=== PATIENT | male | born 1950 | race Caucasian/White ===

== ENCOUNTER 2019-07-23 13:48 | Inpatient (IN) | payer OTHER, MEDICAID ==
[~2019-07-23] VITALS: Ht 172.7 cm; Wt 68.0 kg
[2019-07-23 13:54] VITALS: BP_SYST 141
[2019-07-23 14:57] LABS: BASOPHILS % (AUTO) 0.5 % (0.0-2.0); EOSINOPHILS % (AUTO) 0.4 % (0.0-4.0); HEMATOCRIT 32.7 % (36-54); HEMOGLOBIN 11.4 g/dL (14.0-18.0); LYMPHOCYTES # (AUTO) 0.8 K/uL (1.0-5.5); LYMPHOCYTES % (AUTO) 9.5 % (20.5-51.5); MEAN CORPUSCULAR HEMOGLOBIN 32 pg (27-31); MEAN CORPUSCULAR HGB CONC 35 % (32-36); MEAN CORPUSCULAR VOLUME 92 fL (79.0-98.0); NEUTROPHILS # (AUTO) 6.5 K/uL (1.8-7.7); NEUTROPHILS % (AUTO) 77.6 % (40.0-70.0); PLATELET COUNT (AUTO) 525 K/uL (130-430); RED BLOOD CELL COUNT(AUTO) 3.56 MIL/uL (4.2-6.2); RED CELL DISTRIBUTION WIDTH 13.3 % (9.0-15.0); WHITE BLOOD COUNT (AUTO) 8.4 K/uL (4.8-10.8)
[2019-07-23 15:01] LABS: CALCIUM 9.5 mg/dL (8.4-11.0); CREATININE 0.78 mg/dL (0.55-1.30); POTASSIUM 4.4 mmol/L (3.5-5.1)
[2019-07-23 15:07] LABS: ALBUMIN 2.5 g/dL (3.4-4.8); INR 1.1 (0.80-1.20); PROTHROMBIN TIME 10.8 SECS (9.5-12.5); TOTAL BILIRUBIN 0.3 mg/dL (0.0-1.0)
[2019-07-23] MEDS ORDERED: MORPHINE 2 MG/ML INJ. SYRINGE IVP ONE (15:30)
[2019-07-23 15:57] LABS: BILIRUBIN,URINE NEGATIVE (NEGATIVE); CLARITY/URINE CLEAR (CLEAR); COLOR,URINE YELLOW (YELLOW); GLUCOSE,URINE NEGATIVE (NEGATIVE); KETONES,URINE NEGATIVE (NEGATIVE); LEUKOCYTE ESTERASE ,URINE NEGATIVE (NEGATIVE); NITRITE, URINE NEGATIVE (NEGATIVE); PROTEIN URINE NEGATIVE (NEGATIVE); UROBILINOGEN,URINE 0.2 (0.2-1.0)
[2019-07-23] MEDS ORDERED: LOSA50TA28 PO (16:04)
[2019-07-23] MEDS ORDERED: LINA290C PO (16:04)
[2019-07-23] MEDS ORDERED: OXYC10TA56 PO ×2 (16:04)
[2019-07-23] MEDS ORDERED: PRED1TAB PO (16:04)
[2019-07-23 16:05] LABS: BLOOD, URINE TRACE (NEGATIVE)
[2019-07-23 16:41] LABS: BACTERIA,URINE FEW /HPF (None Seen); CALCIUM OXALATE CRYSTALS,UR 0-10 /HPF (None Seen); WBC,URINE 0-3 /HPF (0-3)
[2019-07-23 16:51] VITALS: BP_SYST 120
[2019-07-23] MEDS ORDERED: ONDANSETRON HCL 4 MG/2 ML VIAL IVP PRN (17:30)
[2019-07-23] MEDS ORDERED: predniSONE 1 MG TABLET PO ONE (17:30)
[2019-07-23] MEDS ORDERED: oxyCODONE HCL 10 MG TAB.ER.12H PO PRN (17:30)
[2019-07-23] MEDS ORDERED: LACTULOSE 20 GM/30 ML UDC PO PRN (17:45)
[2019-07-23] MEDS ORDERED: FUROSEMIDE 20 MG TABLET PO ONE (17:45)
[2019-07-23] MEDS ORDERED: ACETAMINOPHEN 325 MG TABLET PO PRN (17:45)
[2019-07-23] MEDS ORDERED: ZOLPIDEM TARTRATE 5 MG TABLET PO PRN (17:45)
[2019-07-23] MEDS ORDERED: oxyCODONE HCL 5 MG TABLET PO PRN (17:55)
[2019-07-23] MEDS ORDERED: IPRATROPIUM/ALBUTEROL SULFATE 3 ML AMPUL.NEB (DUONEB) INH PRN (18:00)
[2019-07-23] MEDS: PIPERACILLIN/TAZO 3.375/DEX-IS 50 ML IV SCH ×2 (18:12→23:33)
[2019-07-23] MEDS ORDERED: COMMUNICATION ORDER XX ONE (18:15)
[2019-07-23 19:00] VITALS: BP_SYST 105
[2019-07-23 20:00] VITALS: BP_SYST 105
[2019-07-23] MEDS: MORPHINE 2 MG/ML INJ. SYRINGE IVP PRN (20:30)
[2019-07-23] MEDS: oxyCODONE HCL 5 MG TABLET PO PRN (21:56)
[2019-07-23] MEDS: predniSONE 1 MG TABLET PO SCH (22:04)
[2019-07-23] MEDS: ENOXAPARIN SODIUM 40 MG/0.4 ML SYRINGE SUBCUT SCH (22:10)
[2019-07-23 22:30] VITALS: BP_SYST 126
[2019-07-24] MEDS ORDERED: FLU VACC TS2019(65UP)/MF59C/PF 45 MCG/0.5 ML SYRINGE I.M. PRN (02:45)
[2019-07-24 04:00] VITALS: BP_SYST 157
[2019-07-24] MEDS: MORPHINE 2 MG/ML INJ. SYRINGE IVP PRN (04:02)
[2019-07-24] MEDS: oxyCODONE HCL 5 MG TABLET PO PRN ×5 (04:38→20:49)
[2019-07-24] MEDS ORDERED: HYDROmorphone 1 MG INJ. 1 MG/ML AMPUL IVP PRN ×2 (05:30→12:00)
[2019-07-24] MEDS: PIPERACILLIN/TAZO 3.375/DEX-IS 50 ML IV SCH ×4 (06:01→23:56)
[2019-07-24 06:12] LABS: BASOPHILS % (AUTO) 0.4 % (0.0-2.0); EOSINOPHILS # (AUTO) 0.1 K/uL (0.0-0.4); EOSINOPHILS % (AUTO) 1.2 % (0.0-4.0); HEMATOCRIT 31.1 % (36-54); LYMPHOCYTES # (AUTO) 1.1 K/uL (1.0-5.5); LYMPHOCYTES % (AUTO) 14.2 % (20.5-51.5); MEAN CORPUSCULAR HEMOGLOBIN 32 pg (27-31); MEAN CORPUSCULAR HGB CONC 35 % (32-36); MEAN CORPUSCULAR VOLUME 92 fL (79.0-98.0); MONOCYTES % (AUTO) 13.9 % (1.7-9.3); NEUTROPHILS # (AUTO) 5.3 K/uL (1.8-7.7); NEUTROPHILS % (AUTO) 70.3 % (40.0-70.0); PLATELET COUNT (AUTO) 489 K/uL (130-430); RED BLOOD CELL COUNT(AUTO) 3.38 MIL/uL (4.2-6.2); RED CELL DISTRIBUTION WIDTH 13.6 % (9.0-15.0); WHITE BLOOD COUNT (AUTO) 7.5 K/uL (4.8-10.8)
[2019-07-24 06:14] LABS: ALBUMIN 2.3 g/dL (3.4-4.8); CALCIUM 8.8 mg/dL (8.4-11.0); CREATININE 0.8 mg/dL (0.55-1.30); TOTAL BILIRUBIN 0.3 mg/dL (0.0-1.0)
[2019-07-24] MEDS: FUROSEMIDE 20 MG TABLET PO SCH ×2 (06:36→17:49)
[2019-07-24 08:15] VITALS: BP_SYST 118
[2019-07-24] MEDS: HYDROmorphone 2 MG/ML VIAL IVP PRN ×4 (08:23→23:30)
[2019-07-24] MEDS: LOSARTAN POTASSIUM 50 MG TABLET (COZAAR) PO SCH (08:25)
[2019-07-24] MEDS: DEXAMETHASONE SOD PHOSPHATE 4 MG/ML VIAL IVP SCH ×2 (09:00→21:00)
[2019-07-24] MEDS: predniSONE 1 MG TABLET PO SCH ×2 (09:42→22:55)
[2019-07-24 11:49] VITALS: BP_SYST 126
[2019-07-24] MEDS: ENOXAPARIN SODIUM 40 MG/0.4 ML SYRINGE SUBCUT SCH (11:52)
[2019-07-24] MEDS ORDERED: MAG-AL HYDROX/SIMETH 30 ML UDC PO PRN (13:00)
[2019-07-24] MEDS ORDERED: METOCLOPRAMIDE HCL 10 MG/2 ML VIAL IVP PRN (13:00)
[2019-07-24] MEDS ORDERED: *HEPARIN PER PHARMACY XX ONE (13:30)
[2019-07-24] MEDS: LORazepam 1 MG TABLET PO PRN ×3 (13:54→22:55)
[2019-07-24] MEDS ORDERED: HEPARIN SODIUM,PORCINE 5000 UNITS/ML VIAL IVP ONE (15:45)
[2019-07-24] MEDS ORDERED: HEPARIN SODIUM,PORCINE 2000 UNITS/0.4 ML BOLUS IVP PRN (15:45)
[2019-07-24 16:00] VITALS: BP_SYST 124
[2019-07-24] MEDS ORDERED: HYDROmorphone 2 MG/ML VIAL IVP ONE (16:15)
[2019-07-24] MEDS: HEPARIN 25,000 UNITS in 250 ML PREMIX IV PRN (17:55)
[2019-07-24 18:10] VITALS: BP_SYST 127
[2019-07-24 20:30] VITALS: BP_SYST 109
[2019-07-24] MEDS: DOCUSATE SODIUM 250 MG CAPSULE PO SCH (21:00)
[2019-07-25] MEDS: HYDROmorphone 2 MG/ML VIAL IVP PRN ×3 (04:39→14:50)
[2019-07-25] MEDS: PIPERACILLIN/TAZO 3.375/DEX-IS 50 ML IV SCH ×4 (04:40→23:32)
[2019-07-25] MEDS: FUROSEMIDE 20 MG TABLET PO SCH ×2 (04:48→18:08)
[2019-07-25 06:14] LABS: CALCIUM 8.4 mg/dL (8.4-11.0); CREATININE 0.73 mg/dL (0.55-1.30); POTASSIUM 4.2 mmol/L (3.5-5.1)
[2019-07-25 06:19] LABS: INR 1.1 (0.80-1.20); PROTHROMBIN TIME 10.9 SECS (9.5-12.5)
[2019-07-25 06:25] LABS: BASOPHILS # (AUTO) 0.1 K/uL (0.0-0.2); BASOPHILS % (AUTO) 0.9 % (0.0-2.0); EOSINOPHILS # (AUTO) 0.1 K/uL (0.0-0.4); EOSINOPHILS % (AUTO) 0.7 % (0.0-4.0); HEMATOCRIT 30.4 % (36-54); HEMOGLOBIN 10.6 g/dL (14.0-18.0); LYMPHOCYTES # (AUTO) 0.9 K/uL (1.0-5.5); LYMPHOCYTES % (AUTO) 11.8 % (20.5-51.5); MEAN CORPUSCULAR HEMOGLOBIN 32 pg (27-31); MEAN CORPUSCULAR HGB CONC 35 % (32-36); MEAN CORPUSCULAR VOLUME 92 fL (79.0-98.0); NEUTROPHILS # (AUTO) 5.5 K/uL (1.8-7.7); NEUTROPHILS % (AUTO) 73.6 % (40.0-70.0); PLATELET COUNT (AUTO) 489 K/uL (130-430); RED CELL DISTRIBUTION WIDTH 13.5 % (9.0-15.0); WHITE BLOOD COUNT (AUTO) 7.5 K/uL (4.8-10.8)
[2019-07-25] MEDS ORDERED: LR 1,000 ML IV.SOLN IV ONE (07:30)
[2019-07-25] MEDS ORDERED: CEFAZOLIN 2 GM IVPB PREMIX 50 ML IV ONE (07:30)
[2019-07-25] MEDS ORDERED: NS IRRIG SOLN 1000 ML IR ONE (07:30)
[2019-07-25] MEDS ORDERED: LIDOCAINE/EPI 1% 1:100000 20 ML VIAL INJ ONE (07:30)
[2019-07-25] MEDS ORDERED: MIDAZOLAM HCL 5 MG/5 ML VIAL IVP ONE (07:30)
[2019-07-25] MEDS ORDERED: PROPOFOL 200MG/ 20ML VIAL (DIPRIVAN) IV ONE (07:30)
[2019-07-25] MEDS ORDERED: fentaNYL CITRATE/PF 100 MCG/2 ML AMP IVP ONE (07:30)
[2019-07-25] MEDS ORDERED: BUPIVACAINE /EPINEPHRINE/PF 0.25% 30 ML VIAL INJ ONE (07:30)
[2019-07-25] MEDS ORDERED: HEPARIN SODIUM,PORCINE/NS/PF 1,000 UNITS/500 ML BAG IV ONE (07:30)
[2019-07-25] MEDS ORDERED: fentaNYL CITRATE/PF 100 MCG/2 ML AMP IVP PRN ×2 (08:30)
[2019-07-25] MEDS ORDERED: ONDANSETRON HCL 4 MG/2 ML VIAL IVP PRN (08:30)
[2019-07-25] MEDS ORDERED: KETOROLAC TROMETHAMINE 30 MG VIAL IVP PRN (08:30)
[2019-07-25] MEDS: DEXAMETHASONE SOD PHOSPHATE 4 MG/ML VIAL IVP SCH ×3 (09:00→21:00)
[2019-07-25 09:39] LABS: BASOPHILS # (AUTO) 0.1 K/uL (0.0-0.2); BASOPHILS % (AUTO) 0.6 % (0.0-2.0); EOSINOPHILS # (AUTO) 0.1 K/uL (0.0-0.4); EOSINOPHILS % (AUTO) 0.9 % (0.0-4.0); HEMOGLOBIN 10.6 g/dL (14.0-18.0); LYMPHOCYTES # (AUTO) 1.3 K/uL (1.0-5.5); LYMPHOCYTES % (AUTO) 11.3 % (20.5-51.5); MEAN CORPUSCULAR HEMOGLOBIN 32 pg (27-31); MEAN CORPUSCULAR HGB CONC 34 % (32-36); MEAN CORPUSCULAR VOLUME 93 fL (79.0-98.0); MONOCYTES # (AUTO) 1.4 K/uL (0.0-1.0); MONOCYTES % (AUTO) 12.6 % (1.7-9.3); NEUTROPHILS # (AUTO) 8.2 K/uL (1.8-7.7); NEUTROPHILS % (AUTO) 74.6 % (40.0-70.0); PLATELET COUNT (AUTO) 494 K/uL (130-430); RED BLOOD CELL COUNT(AUTO) 3.35 MIL/uL (4.2-6.2); RED CELL DISTRIBUTION WIDTH 13.7 % (9.0-15.0); WHITE BLOOD COUNT (AUTO) 11.1 K/uL (4.8-10.8)
[2019-07-25 09:49] LABS: CALCIUM 8.6 mg/dL (8.4-11.0); CREATININE 0.78 mg/dL (0.55-1.30); POTASSIUM 4.2 mmol/L (3.5-5.1)
[2019-07-25] MEDS: DOCUSATE SODIUM 250 MG CAPSULE PO SCH ×2 (11:32→21:14)
[2019-07-25] MEDS: LOSARTAN POTASSIUM 50 MG TABLET (COZAAR) PO SCH (11:33)
[2019-07-25 12:00] VITALS: BP_SYST 116
[2019-07-25] MEDS ORDERED: MORPHINE SULFATE 30 MG TABLET.SA PO SCH (14:00)
[2019-07-25] MEDS ORDERED: LORazepam 1 MG TABLET PO ONE (16:15)
[2019-07-25] MEDS ORDERED: HYDROmorphone 2 MG/ML VIAL IVP PRN (16:45)
[2019-07-25] MEDS ORDERED: LORazepam 1 MG TABLET PO PRN (16:45)
[2019-07-25] MEDS ORDERED: NALOXONE HCL 0.4 MG/ML AMP (NARCAN) IVP PRN (16:45)
[2019-07-25] MEDS ORDERED: HYDROmorphone 2 MG/ML VIAL IVP ONE (16:45)
[2019-07-25] MEDS ORDERED: HYDROmorphone 1 MG INJ. 1 MG/ML AMPUL IVP PRN (16:45)
[2019-07-25 16:50] VITALS: BP_SYST 136
[2019-07-25] MEDS: oxyCODONE HCL 5 MG TABLET PO PRN (18:07)
[2019-07-25 19:23] LABS: INR 1.1 (0.80-1.20); PROTHROMBIN TIME 10.9 SECS (9.5-12.5)
[2019-07-25 20:00] VITALS: BP_SYST 101
[2019-07-25] MEDS: DRONABINOL 2.5 MG CAPSULE PO SCH (21:13)
[2019-07-25] MEDS: LORazepam 1 MG TABLET PO SCH (21:14)
[2019-07-25] MEDS: MORPHINE SULFATE 30 MG TABLET.SA PO SCH (21:14)
[2019-07-25] MEDS: HEPARIN SODIUM,PORCINE 3000 UNITS/0.6 ML BOLUS IVP PRN (21:20)
[2019-07-25] MEDS: HEPARIN 25,000 UNITS in 250 ML PREMIX IV PRN (21:23)
[2019-07-26] MEDS: HYDROmorphone 2 MG/ML VIAL IVP PRN ×5 (00:39→15:19)
[2019-07-26] MEDS: MORPHINE SULFATE 30 MG TABLET.SA PO SCH ×3 (02:00→13:48)
[2019-07-26] MEDS: HEPARIN 25,000 UNITS in 250 ML PREMIX IV PRN ×3 (04:36→13:15)
[2019-07-26 05:27] LABS: BASOPHILS # (AUTO) 0.1 K/uL (0.0-0.2); EOSINOPHILS # (AUTO) 0.1 K/uL (0.0-0.4); EOSINOPHILS % (AUTO) 0.7 % (0.0-4.0); HEMATOCRIT 32.8 % (36-54); HEMOGLOBIN 11.4 g/dL (14.0-18.0); LYMPHOCYTES # (AUTO) 1.9 K/uL (1.0-5.5); LYMPHOCYTES % (AUTO) 19.5 % (20.5-51.5); MEAN CORPUSCULAR HEMOGLOBIN 32 pg (27-31); MEAN CORPUSCULAR HGB CONC 35 % (32-36); MEAN CORPUSCULAR VOLUME 92 fL (79.0-98.0); MONOCYTES # (AUTO) 1.2 K/uL (0.0-1.0); MONOCYTES % (AUTO) 12.2 % (1.7-9.3); NEUTROPHILS # (AUTO) 6.6 K/uL (1.8-7.7); NEUTROPHILS % (AUTO) 66.6 % (40.0-70.0); PLATELET COUNT (AUTO) 500 K/uL (130-430); RED BLOOD CELL COUNT(AUTO) 3.57 MIL/uL (4.2-6.2); RED CELL DISTRIBUTION WIDTH 13.5 % (9.0-15.0); WHITE BLOOD COUNT (AUTO) 9.9 K/uL (4.8-10.8)
[2019-07-26 05:29] LABS: INR 1.1 (0.80-1.20)
[2019-07-26 05:33] LABS: ALBUMIN 2.3 g/dL (3.4-4.8); CALCIUM 8.5 mg/dL (8.4-11.0); CREATININE 0.84 mg/dL (0.55-1.30); POTASSIUM 4.1 mmol/L (3.5-5.1); TOTAL BILIRUBIN 0.3 mg/dL (0.0-1.0)
[2019-07-26] MEDS: FUROSEMIDE 20 MG TABLET PO SCH (05:57)
[2019-07-26] MEDS: PIPERACILLIN/TAZO 3.375/DEX-IS 50 ML IV SCH ×3 (05:59→11:58)
[2019-07-26] MEDS: HEPARIN SODIUM,PORCINE 3000 UNITS/0.6 ML BOLUS IVP PRN (06:21)
[2019-07-26 08:00] VITALS: BP_SYST 101
[2019-07-26] MEDS: DRONABINOL 2.5 MG CAPSULE PO SCH ×2 (08:35→09:00)
[2019-07-26] MEDS: LORazepam 1 MG TABLET PO SCH ×2 (08:35→15:19)
[2019-07-26] MEDS: LOSARTAN POTASSIUM 50 MG TABLET (COZAAR) PO SCH (08:36)
[2019-07-26] MEDS: DOCUSATE SODIUM 250 MG CAPSULE PO SCH (08:37)
[2019-07-26] MEDS: DEXAMETHASONE SOD PHOSPHATE 4 MG/ML VIAL IVP SCH (08:38)
[2019-07-26] MEDS: oxyCODONE HCL 5 MG TABLET PO PRN (10:32)
[2019-07-26 12:26] VITALS: BP_SYST 126
[2019-07-26] MEDS ORDERED: SODIUM CHLORIDE 500 MG TABLET PO SCH (15:00)
[2019-07-26 16:55] VITALS: BP_SYST 121
[2019-07-26 18:00] VITALS: BP_SYST 121
== END 2019-07-26 17:40 | disposition left against medical advice (07) | DRG 919 ==
LOC: SED 13:48 → STU 16:26
PROVIDERS: ADMIT Internal Medicine; ATTEND Internal Medicine
PROC: 0W9B00Z Drainage of Left Pleural Cavity with Drainage Device, Open Approach (ICD-10-PCS; 2019-07-25)
PROC: 0WPBX3Z Removal of Infusion Device from Left Pleural Cavity, External Approach (ICD-10-PCS; principal; 2019-07-25 07:30)
DX: T85.618A Breakdown (mechanical) of other specified internal prosthetic devices, implants and grafts, initial encounter (principal); I50.41 Acute combined systolic (congestive) and diastolic (congestive) heart failure; J93.9 Pneumothorax, unspecified; E44.0 Moderate protein-calorie malnutrition; E22.2 Syndrome of inappropriate secretion of antidiuretic hormone; J91.0 Malignant pleural effusion; I82.402 Acute embolism and thrombosis of unspecified deep veins of left lower extremity; D68.59 Other primary thrombophilia; C34.90 Malignant neoplasm of unspecified part of unspecified bronchus or lung; M06.9 Rheumatoid arthritis, unspecified; D63.8 Anemia in other chronic diseases classified elsewhere; J44.9 Chronic obstructive pulmonary disease, unspecified; Y83.8 Other surgical procedures as the cause of abnormal reaction of the patient, or of later complication, without mention of misadventure at the time of the procedure; F32.9 Major depressive disorder, single episode, unspecified; E88.09 Other disorders of plasma-protein metabolism, not elsewhere classified; G13.0 Paraneoplastic neuromyopathy and neuropathy; G89.3 Neoplasm related pain (acute) (chronic); Z53.21 Procedure and treatment not carried out due to patient leaving prior to being seen by health care provider; Z68.22 Body mass index [BMI] 22.0-22.9, adult; Z80.1 Family history of malignant neoplasm of trachea, bronchus and lung; Z98.41 Cataract extraction status, right eye; Z87.891 Personal history of nicotine dependence; Z79.899 Other long term (current) drug therapy; Y92.89 Other specified places as the place of occurrence of the external cause; Z91.19 Patient's noncompliance with other medical treatment and regimen; I11.0 Hypertensive heart disease with heart failure
CPT/HCPCS: 36415; 71045; 71250-TC; 80048; 80053; 81000-TC; 83605; 83880; 84484; 85025; 85610-TC; 85730-TC; 86886; 86900; 86901; 86920; 87040-TC; 87070; 87070-TC; 87075-TC; 87081; 93005; 93970; 96374; 99285; C1727; C1750; G0378; J0690; J1100; J1170; J1644; J1650; J2250; J2270; J2274; J2543; J2704; J3010; J3490; J7120; J7512; J7620; Q0167

== ENCOUNTER 2019-07-27 14:53 | Inpatient (IN) | payer OTHER, MEDICAID ==
[~2019-07-27] VITALS: Ht 172.7 cm; Wt 78.5 kg
[2019-07-27] MEDS: OXYCODONE/ACETAMINOPHEN *10*mg/325 mg TABLET PO ONE ×2 (08:17→18:42)
[2019-07-27 14:53] VITALS: BP_SYST 105
[~2019-07-27 14:53] MED LIST: LINA290C PO; LOSA50TA28 PO; OXYC10TA56 PO; PRED1TAB PO
--- NOTE | 2019-07-27 15:00 | NUR ---
BROUGHT IN BY [facility], PLACED IN BED #4 AND TRIAGED. REPORT GIVEN TO REAGAN
--- NOTE | 2019-07-27 15:15 | NUR ---
Patient arrived via [facility] ambulance. Patient c/c of left sided chest pain. Pain rated at 7/10, sharp burning type of pain. Patient takes pain medications at home without relief. Patient states he was just discharged from here yesterday. While here he received a scraping. Patient has a pleurix tube placed to left axilla region. There is a bandage to LLQ of abdomen. Patient has history of pleural effusion. Patient has +2 bilateral lower extremity swelling.Will continue to follow up and monitor.
--- NOTE | 2019-07-27 15:16 | NUR ---
HARSHAL Membreno at bedside examining patient.
[2019-07-27] MEDS ORDERED: KETAMINE 30 MG/3 ML SYRINGE IVP ONE (15:30)
[2019-07-27 15:44] LABS: BASOPHILS % (AUTO) 0.2 % (0.0-2.0); EOSINOPHILS % (AUTO) 0.1 % (0.0-4.0); HEMATOCRIT 28.9 % (36-54); HEMOGLOBIN 10.1 g/dL (14.0-18.0); LYMPHOCYTES # (AUTO) 0.4 K/uL (1.0-5.5); LYMPHOCYTES % (AUTO) 4.7 % (20.5-51.5); MEAN CORPUSCULAR HEMOGLOBIN 32 pg (27-31); MEAN CORPUSCULAR HGB CONC 35 % (32-36); MEAN CORPUSCULAR VOLUME 92 fL (79.0-98.0); MONOCYTES # (AUTO) 0.9 K/uL (0.0-1.0); MONOCYTES % (AUTO) 11.1 % (1.7-9.3); NEUTROPHILS # (AUTO) 6.6 K/uL (1.8-7.7); NEUTROPHILS % (AUTO) 83.9 % (40.0-70.0); PLATELET COUNT (AUTO) 399 K/uL (130-430); RED BLOOD CELL COUNT(AUTO) 3.16 MIL/uL (4.2-6.2); RED CELL DISTRIBUTION WIDTH 13.5 % (9.0-15.0); WHITE BLOOD COUNT (AUTO) 7.8 K/uL (4.8-10.8)
[2019-07-27 15:56] LABS: CALCIUM 8.5 mg/dL (8.4-11.0); CREATININE 0.76 mg/dL (0.55-1.30)
[2019-07-27 16:02] LABS: ALBUMIN 2.1 g/dL (3.4-4.8); TOTAL BILIRUBIN 0.3 mg/dL (0.0-1.0)
--- NOTE | 2019-07-27 16:06 | NUR ---
# 20 gauge angiocath placed to left forearm. Use of asceptic technique. Opsite placed over site. Blood return noted. Blood for lab drawn from site. Flushed with 10 cc of normal saline. No evidence of infiltration noted. Patient tolerated well.
--- NOTE | 2019-07-27 16:08 | NUR ---
Patient given IVP Ketamine for pain control. Patient on surveillance system monitor, and side rails are up for safety. Patient belongings within reach.
[2019-07-27] MEDS ORDERED: LORazepam 2 MG/ML VIAL IVP ONE (17:15)
--- NOTE | 2019-07-27 17:20 | NUR ---
Discussed patient code status with patient. MD Ash and Ilene RN at bedside.
--- NOTE | 2019-07-27 18:00 | NUR ---
Patient will be admitted to care of Kylah Hernandez. Admitted to [facility] unit. Will go to room 124B. Belongings list completed. Summary report printed. Report will be given at bedside.
--- NOTE | 2019-07-27 18:17 | NUR ---
admission notes rec pt from er with a dx of acute/chronic pain. drowsy from meds given in er but arousable to stimuli. ivl on the l forearm intact. no infiltration noted. resp easy and unlabored. no osb noted. bed to the lowest position and side rails up and locked. with a sitter at bedside.
[2019-07-27 18:27] VITALS: BP_SYST 122
--- NOTE | 2019-07-27 19:10 | NUR ---
ATTENDING MD DR Manuel DE LA ROSA WAS CALLED, RE: MEDICATION ORDERS. SPOKE TO THE EXCHANGE
[2019-07-27 19:51] VITALS: BP_SYST 122
[2019-07-27 19:53] VITALS: BP_SYST 122
--- NOTE | 2019-07-27 20:50 | NUR ---
PAGED DR DE LA ROSA RE: MEDICATIONS Paged Manuel Maki through exchange.
[2019-07-27] MEDS ORDERED: D5NS 1,000 ML IV SCH (21:10)
[2019-07-27] MEDS ORDERED: ONDANSETRON HCL 4 MG/2 ML VIAL IVP PRN (21:15)
[2019-07-27] MEDS ORDERED: ACETAMINOPHEN 325 MG TABLET PO PRN (21:15)
[2019-07-27] MEDS ORDERED: MORPHINE 4 MG/ML INJ. SYRINGE IVP PRN (21:15)
[2019-07-27] MEDS ORDERED: LORazepam 2 MG/ML VIAL IVP PRN (21:15)
[2019-07-27] MEDS ORDERED: MORPHINE 2 MG/ML INJ. SYRINGE IVP PRN (21:15)
--- NOTE | 2019-07-27 21:30 | NUR ---
patient upset d/t staff was attempting to inventory belongings. Patient accused staff of taking credit card. Patient requested to talk to pilot plant supervisor. pilot plant supervisor Skyla talked to patient. Staff found his card but refused further inventory. Nca Certified Concierge present during refusal.
[2019-07-27] MEDS: OXYCODONE/ACETAMINOPHEN *10*mg/325 mg TABLET PO PRN (22:04)
--- NOTE | 2019-07-27 22:31 | NUR ---
CONSULTATION PAGED/CALLED Reason for Consultation: CONTROL PAIN Person Who was Notified: SARAN Consulting Physician: Buatista GUNTER [employer] Installer Specialty: PAIN MANAGEMENT Ordering Physician: Kylah DE LA ROSA
--- NOTE | 2019-07-28 | NUR ---
no change from assessment noted. Pain is will manage. Patient is sleeping. Eyes closed/chest rising. Will continue to monitor for safety.
[2019-07-28 00:24] VITALS: BP_SYST 119
[2019-07-28 04:00] VITALS: BP_SYST 112
[2019-07-28] MEDS: OXYCODONE/ACETAMINOPHEN *10*mg/325 mg TABLET PO PRN (04:35)
[2019-07-28] MEDS ORDERED: oxyCODONE HCL 10 MG TAB.ER.12H PO SCH (06:00)
--- NOTE | 2019-07-28 06:33 | NUR ---
Incident, RN found two pills at the bedside. Oxycontin 20mg pill and 10mg pill found at bedside. Patient is refusing to check pockets to search for additional contrabands.
[2019-07-28 06:55] LABS: BASOPHILS % (AUTO) 0.2 % (0.0-2.0); EOSINOPHILS % (AUTO) 0.1 % (0.0-4.0); HEMATOCRIT 27.3 % (36-54); HEMOGLOBIN 9.6 g/dL (14.0-18.0); LYMPHOCYTES # (AUTO) 0.5 K/uL (1.0-5.5); LYMPHOCYTES % (AUTO) 6.8 % (20.5-51.5); MEAN CORPUSCULAR HEMOGLOBIN 32 pg (27-31); MEAN CORPUSCULAR HGB CONC 35 % (32-36); MEAN CORPUSCULAR VOLUME 92 fL (79.0-98.0); MONOCYTES # (AUTO) 1.2 K/uL (0.0-1.0); MONOCYTES % (AUTO) 15.4 % (1.7-9.3); NEUTROPHILS # (AUTO) 6.1 K/uL (1.8-7.7); NEUTROPHILS % (AUTO) 77.5 % (40.0-70.0); PLATELET COUNT (AUTO) 388 K/uL (130-430); RED BLOOD CELL COUNT(AUTO) 2.97 MIL/uL (4.2-6.2); RED CELL DISTRIBUTION WIDTH 13.4 % (9.0-15.0); WHITE BLOOD COUNT (AUTO) 7.9 K/uL (4.8-10.8)
[2019-07-28 07:05] LABS: ALBUMIN 1.9 g/dL (3.4-4.8); CREATININE 0.74 mg/dL (0.55-1.30); PHOSPHORUS 2.2 mg/dL (2.7-4.5); POTASSIUM 4.2 mmol/L (3.5-5.1); TOTAL BILIRUBIN 0.4 mg/dL (0.0-1.0)
[2019-07-28] MEDS ORDERED: LOSARTAN POTASSIUM 50 MG TABLET (COZAAR) PO SCH (09:00)
[2019-07-28] MEDS ORDERED: NON-FORMULARY MEDICATION (Linaclotide (Linzess) 290 MCG) PO SCH (09:00)
[2019-07-28] MEDS ORDERED: predniSONE 1 MG TABLET PO SCH (09:00)
== END 2019-07-28 07:02 | disposition left against medical advice (07) | DRG 947 ==
LOC: SED 14:53 → SMU 17:02
PROVIDERS: ADMIT Preventive Medicine Preventive Medicine/Occupational Environmental Medicine; ATTEND Preventive Medicine Preventive Medicine/Occupational Environmental Medicine
DX: G89.3 Neoplasm related pain (acute) (chronic) (principal); E43 Unspecified severe protein-calorie malnutrition; C34.90 Malignant neoplasm of unspecified part of unspecified bronchus or lung; J91.8 Pleural effusion in other conditions classified elsewhere; E22.2 Syndrome of inappropriate secretion of antidiuretic hormone; R07.89 Other chest pain; D64.9 Anemia, unspecified; Z66 Do not resuscitate; Z51.5 Encounter for palliative care; I10 Essential (primary) hypertension; Z53.29 Procedure and treatment not carried out because of patient's decision for other reasons; J44.9 Chronic obstructive pulmonary disease, unspecified; Z79.899 Other long term (current) drug therapy
CPT/HCPCS: 36415; 71045; 80053; 83735-TC; 83880; 84100-TC; 85025; 87081; 93005; 96374; 96375; 99285; J2060; J2270; J7042; J7512